=== PATIENT | male | born 1965 | race Caucasian/White ===

== ENCOUNTER 2022-09-14 10:14 | Outpatient (CLI) | payer OTHER ==
[~2022-09-14] VITALS: Ht 190.5 cm; Wt 115.9 kg
[2022-09-14] MEDS ORDERED: FAMO-119 PO (10:36)
[2022-09-15] MEDS ORDERED: HYDR-3817 PO (11:51)
== END 2022-09-14 11:12 | disposition home or self-care (01) ==
LOC: PREOP 10:14
PROVIDERS: ATTEND Surgery
DX: Z01.818 Encounter for other preprocedural examination (principal)

== ENCOUNTER 2022-09-15 11:35 | Day surgery (SDC) | payer OTHER ==
[2022-09-15] VITALS (12 sets, daily range): BP systolic 115–167; BP diastolic 73–94
[~2022-09-15] VITALS: Ht 190.5 cm; Wt 115.9 kg
[~2022-09-15 11:35] MED LIST: FAMO-119 PO
[2022-09-15] MEDS ORDERED: HYDR-3817 PO (11:51)
--- NOTE | 2022-09-15 11:51 | Discharge Inst-Surgical ---
D/C Lap Instructions-KIDO Reconcile Patient Problems Problems Reviewed?: Yes New, Converted, or Re-Newed RX: RX on Chart Follow Up Appt in 2 weeks Activity as tolerated No driving for 24 hours No driving while on pain medications Incentive Spirometry use every 2 hours while awake Regular Diet Symptoms to Report: Fever over 101 degree F, Nausea/Vomiting Infection Signs and Symptoms to report: Increased redness, Foul odor of wound, Increased drainage Bathing instructions: May shower Operative Area Clean/Dry; Keep incision clean/dry If any problems/questions: Contact your physician or go to Emergency Room SHIRIN CORTEZ APRN Sep 15, 2022 11:51
--- NOTE | 2022-09-15 11:52 | Progress Note-Pre Operative ---
Pre-Operative Progress Note Date H&P Reviewed: Sep 15, 2022 Time H&P Reviewed: 11:50 History & Physical: H&P Reviewed, Patient Examed, No changes noted Pre-Operative Diagnosis: Umbilical hernia SHIRIN CORTEZ PROFESSIONAL DRIVER Sep 15, 2022 11:52
[2022-09-15] MEDS: LACTATED RINGERS 1,000 ML IV PRN ×2 (11:55→14:24)
[2022-09-15] MEDS ORDERED: BUP/EPI 0.5% 1:200,000 (MARCAINE) 10ML VIAL IJ ONE ×2 (11:58→12:51)
[2022-09-15] MEDS ORDERED: morphine INJ 10 MG/ML 1ML (SYR OR VIAL) IVP PRN (12:00)
[2022-09-15] MEDS ORDERED: HYDROcodone/APAP 5 MG/325 MG (LORTAB) TAB PO ONE (12:00)
[2022-09-15] MEDS ORDERED: ONDANSETRON 4 MG/2 ML (SDV) Z0FRAN IVP PRN ×2 (12:00→14:30)
[2022-09-15] MEDS ORDERED: ACETAMINOPHEN 325 MG TABLET PO PRN (12:00)
[2022-09-15] MEDS ORDERED: ceFAZolin INJECTION 2,000 MG ONE (12:09)
[2022-09-15] MEDS ORDERED: NS (IVPB) 50 ML ONE (12:09)
[2022-09-15] MEDS ORDERED: ceFAZolin INJECTION 2,000 MG in NS (IVPB) 50 ML IV ONE (12:15)
[2022-09-15] MEDS ORDERED: ONDANSETRON 4 MG/2 ML (SDV) Z0FRAN ONE (12:54)
[2022-09-15] MEDS ORDERED: fentaNYL INJ 100 MCG/2 ML AMP ONE (12:54)
[2022-09-15] MEDS ORDERED: LIDOCAINE PF 2% 5 ML (XYLOCAINE) VIAL ONE (12:54)
[2022-09-15] MEDS ORDERED: proPOfol 200 MG/20 ML (DIPRIVAN) VIAL IV ONE ×2 (12:54→13:29)
[2022-09-15] MEDS ORDERED: MIDAZOLAM 2 MG/2 ML (VERSED) VIAL ONE (12:54)
[2022-09-15] MEDS ORDERED: PHENYLEPHRINE 100 MCG/ML 10 ML (ANESTHESIA) SYR ONE (13:40)
[2022-09-15] MEDS ORDERED: KETOROLAC 30 MG/ML VIAL ONE (14:03)
--- NOTE | 2022-09-15 14:11 | Progress Note-Post Operative ---
Post-Operative Progess Note Surgeon (s)/Application Technical Designer (s) Surgeon LI TANG MD Application Technical Designer: glen valderrama SUPERVISOR HOUSECLE[employer]ER Pre-Operative Diagnosis Umbilical hernia Post-Operative Diagnosis reducible umbilical hernia Procedure & Operative Findings Date of Procedure 09/15/22 Procedure Performed/Findings open umbilical hernia repair with mesh. Anesthesia Type get Estimated Blood Loss Estimated blood loss (mL): minimal Specimens/Packing Specimens Removed hernia sac LI TANG MD Sep 15, 2022 14:11
[2022-09-15] MEDS ORDERED: SEVOFLURANE (ULTANE) 15 ML INHAL SOLN ONE (14:13)
[2022-09-15] MEDS ORDERED: morphine INJ 10 MG/ML 1ML (SYR OR VIAL) ONE (14:28)
[2022-09-15] MEDS ORDERED: HYDROmorphone 2 MG/ML VIAL (DILAUDID) IV ONE (14:30)
[2022-09-15] MEDS ORDERED: morphine INJ 10 MG/ML 1ML (SYR OR VIAL) IVP ONE (14:45)
--- NOTE | 2022-09-15 21:21 | OPERATIVE REPORT ---
DATE OF SERVICE: 09/15/2022 ATTENDING PRIMARY CARE PHYSICIAN: Dr. Catherine Maguire. PREOPERATIVE DIAGNOSIS: Symptomatic reducible umbilical hernia. POSTOPERATIVE DIAGNOSIS: Symptomatic reducible umbilical hernia. PROCEDURE: Open umbilical hernia repair with mesh. SURGEON: LI TANG MD APPOINTMENT MANAGER: Lauri Loja APRN ANESTHESIA: General endotracheal. ESTIMATED BLOOD LOSS: Minimal. FINDINGS: Hernia defect approximately 2.5 cm in size. DISPOSITION: The patient tolerated the procedure well. INDICATIONS FOR PROCEDURE: The patient is a 57-year-old male who has had an outpouching in the umbilical region for the past 15 years. He states that over time, this has slowly grown larger in size and become painful. He was examined in the office and found to have an umbilical hernia, which was reducible; however, tender to palpation. He is otherwise eating well and having normal bowel movements. DESCRIPTION OF PROCEDURE: The patient was brought to the operating room, laid supine on the table. After adequate IV pain and sedative medications and general endotracheal intubation, the abdomen was prepped and draped in standard surgical fashion. The supraumbilical rim was anesthetized using 0.5% Marcaine with epinephrine and a crescent-shaped skin incision was then made using a #15 blade. The subcutaneous tissue was then dissected out using electrocautery. The hernia sac was identified and completely dissected out using electrocautery. The fascia around the defect was then cleared off using blunt dissection as well as electrocautery. The hernia sac was then opened using cautery. There was only preperitoneal fat as well as omentum within the hernia sac. The hernia sac as well as the omentum were then excised under direct visualization using cautery. Good hemostasis was observed. The fascial defect was approximately 2.5 cm in size. An 8 cm round polypropylene mesh was then placed into the defect and sutured concentrically to the mesh and fascia using 0 Prolene sutures. The subcutaneous tissue was then reapproximated using 3-0 Vicryl interrupted sutures and the skin was closed using 4-0 Monocryl running subcuticular suture. Wound was then cleaned and covered with Dermabond, followed by tonsil sponges followed by 4 x 4 gauze followed by a large Op-Site and abdominal binder. The patient tolerated the procedure well. We will start IV and oral pain medications with clear liquid diet. Once he is tolerating clears with good pain control with oral pain medications, ambulating well, we will discharge him home where he will be instructed to do no heavy lifting or exertion for the next 2 weeks and to continue to wear the abdominal binder for 2 weeks as well. Job ID: [id number] DocumentID: [id number] Dictated Date: 09/15/2022 14:16:15 Director Of Training Date: 09/15/2022 21:19:00 Dictated By: LI TANG MD
--- NOTE | 2022-09-16 07:34 | Anesthesia-General Post-Op ---
General Patient Condition Mental Status/LOC: Same as Preop Cardiovascular: Satisfactory Nausea/Vomiting: Absent Respiratory: Satisfactory Pain: Controlled Complications: Absent Post Op Complications Complications None Follow Up Care/Instructions Patient Instructions None needed. Anesthesia/Patient Condition Patient Condition Patient is doing well, no complaints, stable vital signs, no apparent adverse anesthesia problems. No complications reported per nursing. [place] [facility] [place]: Yes KATHERIN CAMPOS CRNA Sep 16, 2022 07:34
== END 2022-09-15 16:35 | disposition home or self-care (01) ==
LOC: SDC 11:35
PROVIDERS: ATTEND Surgery
DX: K42.9 Umbilical hernia without obstruction or gangrene (principal); E66.9 Obesity, unspecified; Z68.31 Body mass index [BMI] 31.0-31.9, adult
CPT/HCPCS: 49585; 87081; 94664; C1781